=== PATIENT | female | born 1985 | race Caucasian/White ===

== ENCOUNTER 2017-10-02 12:52 | Emergency (ER) | payer MEDICAID ==
[2017-10-02 16:04] LABS: ADD MAN DIFF? NO
[2017-10-02 16:05] LABS: WHITE BLOOD COUNT 9.2 10^3/ul (4.8-10.8)
[2017-10-02 16:05] LABS: BASOPHILS % 0.4 % (0.0-2.0); EOSINOPHILS # 0.1 10^3/ul (0.0-0.5); EOSINOPHILS % 1.2 % (0.0-7.0); HEMATOCRIT 36.2 % (37.0-47.0); HEMOGLOBIN 12.3 g/dl (12.0-16.0); LYMPHOCYTES # 2.6 10^3/ul (0.8-2.9); LYMPHOCYTES % 28.3 % (15.0-51.0); MEAN CORPUSCULAR HEMOGLOBIN 29.6 pg (29.0-33.0); MEAN CORPUSCULAR VOLUME 87.2 fl (82.0-101.0); MEAN PLATELET VOLUME 8.8 fl (7.4-10.4); MONOCYTE # 0.9 10^3/ul (0.3-0.9); MONOCYTES % 9.8 % (0.0-11.0); NEUTROPHIL # 5.5 10^3/ul (1.6-7.5); NEUTROPHILS % 59.6 % (39.0-77.0); PLATELET COUNT 396 10^3/UL (140-415); RED BLOOD COUNT 4.15 10^6/ul (4.20-5.40); RED CELL DISTRIBUTION WIDTH 12.1 % (11.5-14.5)
[2017-10-02 16:20] LABS: ADD UMIC YES; UR ASCORBIC ACID NEGATIVE (NEGATIVE); UR BILIRUBIN (Dip) NEGATIVE (NEGATIVE); UR BLOOD (Dip) NEGATIVE (NEGATIVE); UR CLARITY SLIGHTLY CLOUDY (CLEAR); UR COLOR STRAW (YELLOW); UR GLUCOSE (Dip) NEGATIVE (NEGATIVE); UR KETONES (Dip) NEGATIVE (NEGATIVE); UR LEUKOCYTE ESTERASE (Dip) TRACE Leu/ul (NEGATIVE); UR NITRITE (Dip) NEGATIVE (NEGATIVE); UR RBC 0 /HPF (0-5); UR SPECIFIC GRAVITY (Dip) 1.002 (1.003-1.030); UR SQUAMOUS EPITHELIAL CELL FEW /HPF (FEW); UR TOTAL PROTEIN (Dip) NEGATIVE (NEGATIVE); UR UROBILINOGEN (Dip) NEGATIVE (NEGATIVE); UR WBC 1 /HPF (0-5)
[2017-10-02 16:25] LABS: ANION GAP 15 (8-16); BLOOD UREA NITROGEN 4 mg/dl (7-20); CALCIUM 9.4 mg/dl (8.4-10.2); CARBON DIOXIDE 25 mmol/L (21-31); CHLORIDE 103 mmol/L (97-110); CREATININE 0.44 mg/dl (0.44-1.00); GLUCOSE 87 mg/dl (70-220); POTASSIUM 4.1 mmol/L (3.5-5.1); SODIUM 139 mmol/L (135-144)
== END 2017-10-02 17:20 | disposition home or self-care (01) ==
LOC: FTE 12:52
DX: O26.891 Other specified pregnancy related conditions, first trimester (principal); R10.2 Pelvic and perineal pain; Z3A.12 12 weeks gestation of pregnancy
CPT/HCPCS: 36415; 76801; 80048; 81001; 84702; 85025; 99284-25

== ENCOUNTER 2018-03-25 13:07 | Inpatient (IN) | payer MEDICAID ==
[2018-03-25] MEDS ORDERED: LIDOCAINE 1% (MPF) 30 ML INJ INJ (15:30)
[2018-03-25] MEDS ORDERED: OXYTOCIN 30 UNITS/LR 500 ML IV ×2 (15:30)
[2018-03-25] MEDS ORDERED: MISOPROSTOL 200 MCG TAB PR (15:30)
[2018-03-25] MEDS ORDERED: CARBOPROST 250 MCG INJ IM (15:30)
[2018-03-25] MEDS ORDERED: BUTORPHANOL 2 MG INJ IV (15:30)
[2018-03-25] MEDS ORDERED: METHYLERGONOVINE 0.2 MG INJ IM (15:30)
[2018-03-25] MEDS ORDERED: IBUPROFEN 600 MG TAB PO (15:30)
[2018-03-25] MEDS: LACTATED RINGER'S 1,000 ML IV* ×2 (15:33→21:37)
[2018-03-25 16:06] LABS: ADD MAN DIFF? NO; ADD UMIC YES; UR ASCORBIC ACID NEGATIVE (NEGATIVE); UR BACTERIA FEW /HPF (NONE SEEN); UR BILIRUBIN (Dip) NEGATIVE (NEGATIVE); UR BLOOD (Dip) NEGATIVE (NEGATIVE); UR CLARITY CLEAR (CLEAR); UR COLOR STRAW (YELLOW); UR GLUCOSE (Dip) 3+ mg/dL (NEGATIVE); UR KETONES (Dip) TRACE mg/dL (NEGATIVE); UR LEUKOCYTE ESTERASE (Dip) TRACE Leu/ul (NEGATIVE); UR NITRITE (Dip) NEGATIVE (NEGATIVE); UR RBC 1 /HPF (0-5); UR SPECIFIC GRAVITY (Dip) 1.003 (1.003-1.030); UR SQUAMOUS EPITHELIAL CELL FEW /HPF (FEW); UR TOTAL PROTEIN (Dip) NEGATIVE (NEGATIVE); UR UROBILINOGEN (Dip) NEGATIVE (NEGATIVE); UR WBC 1 /HPF (0-5)
[2018-03-25 16:12] LABS: BASOPHILS % 0.2 % (0.0-2.0); EOSINOPHILS # 0.1 10^3/ul (0.0-0.5); EOSINOPHILS % 0.6 % (0.0-7.0); HEMATOCRIT 38.4 % (37.0-47.0); HEMOGLOBIN 13.2 g/dl (12.0-16.0); LYMPHOCYTES # 2.2 10^3/ul (0.8-2.9); LYMPHOCYTES % 26.1 % (15.0-51.0); MEAN CORPUSCULAR HEMOGLOBIN 29.5 pg (29.0-33.0); MEAN CORPUSCULAR HGB CONC 34.4 g/dl (32.0-37.0); MEAN CORPUSCULAR VOLUME 85.9 fl (82.0-101.0); MEAN PLATELET VOLUME 9.6 fl (7.4-10.4); MONOCYTE # 0.7 10^3/ul (0.3-0.9); MONOCYTES % 8.5 % (0.0-11.0); NEUTROPHIL # 5.2 10^3/ul (1.6-7.5); NEUTROPHILS % 63.6 % (39.0-77.0); PLATELET COUNT 311 10^3/UL (140-415); RED BLOOD COUNT 4.47 10^6/ul (4.20-5.40); RED CELL DISTRIBUTION WIDTH 13.2 % (11.5-14.5)
[2018-03-25 16:12] LABS: WHITE BLOOD COUNT 8.2 10^3/ul (4.8-10.8)
[2018-03-25 20:01] LABS: INR 0.89; PROTIME 12.1 Sec (11.9-14.9); PT RATIO 0.9
[2018-03-25 20:02] LABS: PARTIAL THROMBOPLASTIN TIME 24.9 Sec (25.0-35.0)
[2018-03-25] MEDS: AL HYDROX/MG HYDROX/SIMETH 30 ML CUP PO (23:31)
[2018-03-26 03:13] LABS: HEPATITIS B SURFACE ANTIGEN NEGATIVE (NEGATIVE)
[2018-03-26] MEDS: LACTATED RINGER'S 1,000 ML IV* ×2 (03:31→13:27)
[2018-03-26 16:03] LABS: RAPID PLASMA REAGIN NONREACTIVE (NR)
== END 2018-03-26 17:00 | disposition home or self-care (01) | DRG 778 ==
LOC: OBT 13:07 → L-D 13:07 → OBT 15:43 → L-D 14:24
DX: O60.03 Preterm labor without delivery, third trimester (principal); Z3A.37 37 weeks gestation of pregnancy
CPT/HCPCS: 76815; 76818; 81001; 85025; 85610; 85730; 86592; 86850; 86900; 86901; 87086; 87340

== ENCOUNTER 2018-04-03 20:52 | Inpatient (IN) | payer MEDICAID ==
[2018-04-03 23:41] LABS: RUPTURE FETAL MEMBRANES POSITIVE (NEGATIVE)
[2018-04-04] MEDS ORDERED: BUTORPHANOL 2 MG INJ IV
[2018-04-04] MEDS ORDERED: IBUPROFEN 600 MG TAB PO
[2018-04-04] MEDS ORDERED: LIDOCAINE 1% (MPF) 30 ML INJ INJ
[2018-04-04] MEDS ORDERED: HYDROCODONE/APAP (5/325) TAB PO
[2018-04-04] MEDS: LACTATED RINGER'S 1,000 ML IV* (00:50)
[2018-04-04 01:14] LABS: ADD MAN DIFF? NO
[2018-04-04 01:16] LABS: BASOPHILS % 0.2 % (0.0-2.0); EOSINOPHILS % 0.4 % (0.0-7.0); HEMATOCRIT 41.5 % (37.0-47.0); LYMPHOCYTES # 2.4 10^3/ul (0.8-2.9); MEAN CORPUSCULAR HEMOGLOBIN 28.5 pg (29.0-33.0); MEAN CORPUSCULAR HGB CONC 33.7 g/dl (32.0-37.0); MEAN CORPUSCULAR VOLUME 84.3 fl (82.0-101.0); MEAN PLATELET VOLUME 9.5 fl (7.4-10.4); MONOCYTE # 0.7 10^3/ul (0.3-0.9); MONOCYTES % 7.2 % (0.0-11.0); NEUTROPHIL # 5.9 10^3/ul (1.6-7.5); NEUTROPHILS % 65.5 % (39.0-77.0); PLATELET COUNT 294 10^3/UL (140-415); RED BLOOD COUNT 4.92 10^6/ul (4.20-5.40); RED CELL DISTRIBUTION WIDTH 13.3 % (11.5-14.5)
[2018-04-04 01:38] LABS: INR 0.84; PROTIME 11.6 Sec (11.9-14.9); PT RATIO 0.9
[2018-04-04 01:39] LABS: PARTIAL THROMBOPLASTIN TIME 24.7 Sec (25.0-35.0)
[2018-04-04 01:52] LABS: ADD UMIC YES; UR ASCORBIC ACID NEGATIVE (NEGATIVE); UR BACTERIA FEW /HPF (NONE SEEN); UR BILIRUBIN (Dip) NEGATIVE (NEGATIVE); UR BLOOD (Dip) NEGATIVE (NEGATIVE); UR CLARITY CLEAR (CLEAR); UR COLOR YELLOW (YELLOW); UR GLUCOSE (Dip) NEGATIVE (NEGATIVE); UR KETONES (Dip) NEGATIVE (NEGATIVE); UR LEUKOCYTE ESTERASE (Dip) TRACE Leu/ul (NEGATIVE); UR NITRITE (Dip) NEGATIVE (NEGATIVE); UR RBC 0 /HPF (0-5); UR SPECIFIC GRAVITY (Dip) 1.006 (1.003-1.030); UR SQUAMOUS EPITHELIAL CELL FEW /HPF (FEW); UR TOTAL PROTEIN (Dip) NEGATIVE (NEGATIVE); UR UROBILINOGEN (Dip) NEGATIVE (NEGATIVE); UR WBC 3 /HPF (0-5)
[2018-04-04] MEDS: OXYTOCIN 30 UNITS/LR 500 ML IV ×3 (02:03→02:36)
[2018-04-04 02:13] LABS: HEPATITIS B SURFACE ANTIGEN NEGATIVE (NEGATIVE)
[2018-04-04] MEDS ORDERED: LACTATED RINGER'S 1,000 ML IV* (02:15)
[2018-04-04] MEDS ORDERED: MISOPROSTOL 200 MCG TAB PR ×2 (02:30)
[2018-04-04] MEDS ORDERED: CARBOPROST 250 MCG INJ IM ×2 (02:30)
[2018-04-04] MEDS ORDERED: METHYLERGONOVINE 0.2 MG INJ IM ×2 (02:30)
[2018-04-04] MEDS ORDERED: OXYTOCIN 30 UNITS/LR 500 ML IV ×2 (02:30)
[2018-04-04] MEDS: HYDROCODONE/APAP (5/325) TAB PO (02:58)
[2018-04-04] MEDS: LANOLIN 7 GM TUBE TOP (06:03)
[2018-04-04] MEDS: IBUPROFEN 600 MG TAB PO ×3 (06:03→18:31)
[2018-04-04 14:58] LABS: RAPID PLASMA REAGIN NONREACTIVE (NR)
[2018-04-04] MEDS: WITCH HAZEL/GLYCERIN PAD PR (21:10)
[2018-04-04] MEDS: DIBUCAINE 1% 30 GM OINT TOP (21:10)
[2018-04-05] MEDS: IBUPROFEN 600 MG TAB PO ×5 (00:21→23:44)
[2018-04-05 10:31] LABS: ADD MAN DIFF? NO
[2018-04-05 10:45] LABS: BASOPHILS % 0.2 % (0.0-2.0); EOSINOPHILS # 0.1 10^3/ul (0.0-0.5); EOSINOPHILS % 0.6 % (0.0-7.0); HEMATOCRIT 30.3 % (37.0-47.0); HEMOGLOBIN 10.3 g/dl (12.0-16.0); LYMPHOCYTES # 2.5 10^3/ul (0.8-2.9); LYMPHOCYTES % 30.1 % (15.0-51.0); MEAN CORPUSCULAR HEMOGLOBIN 29.6 pg (29.0-33.0); MEAN CORPUSCULAR VOLUME 87.1 fl (82.0-101.0); MEAN PLATELET VOLUME 9.6 fl (7.4-10.4); MONOCYTE # 0.5 10^3/ul (0.3-0.9); MONOCYTES % 6.4 % (0.0-11.0); NEUTROPHILS % 61.1 % (39.0-77.0); PLATELET COUNT 241 10^3/UL (140-415); RED BLOOD COUNT 3.48 10^6/ul (4.20-5.40); RED CELL DISTRIBUTION WIDTH 13.6 % (11.5-14.5)
[2018-04-05 10:45] LABS: WHITE BLOOD COUNT 8.3 10^3/ul (4.8-10.8)
[2018-04-06] MEDS: IBUPROFEN 600 MG TAB PO ×2 (05:42→12:06)
[2018-04-06] MEDS: DIPHTH/TET/ACEL PERTUSS (ADULT) 0.5 ML VIAL IM* (09:00)
== END 2018-04-06 13:15 | disposition home or self-care (01) | DRG 775 ==
LOC: OBT 20:52 → PP1 04-04 03:46 → L-D 20:55 → OBT 23:50 → L-D 23:50
PROVIDERS: Obstetrics & Gynecology
PROC: 10E0XZZ Delivery of Products of Conception, External Approach (ICD-10-PCS; principal; 2018-04-04)
DX: O80 Encounter for full-term uncomplicated delivery (principal); Z3A.37 37 weeks gestation of pregnancy
CPT/HCPCS: 81001; 84112; 85025; 85610; 85730; 86592; 86850; 86900; 86901; 87086; 87340

== ENCOUNTER 2018-12-24 20:22 | Emergency (ER) | payer MEDICAID | END 2018-12-24 21:50 | disposition home or self-care (01) | LOC: FTE 20:22 | DX: M54.12 Radiculopathy, cervical region (principal) | CPT/HCPCS: 99283; Z7502 ==